=== PATIENT | male | born 1985 | race Caucasian/White ===

== ENCOUNTER 2017-08-24 09:47 | Emergency (ER) | payer OTHER ==
[~2017-08-24] VITALS: Ht 188 cm; Wt 81.7 kg
[~2017-08-24 09:47] MED LIST: AMOXICILLIN 50500 MG PO; AMOXICILLIN875 MG PO; DOXYCYCLINE 10100 M1 PO; IBUPROFEN 600600 M1 PO; IBUPROFEN 800800 M1 PO; KEFLEX500 MG PO; NOHOMEMEDICATIONS; NORCO 5-325 TA1 EACH PO
[2017-08-24 09:58] VITALS: BP 120/81
[2017-08-24] MEDS ORDERED: CIPROFLOXIN HC2.5 M1 OPHTHALMIC (10:30)
== END 2017-08-24 10:37 | disposition home or self-care (01) ==
LOC: M.ERS 09:47
DX: S05.01XA Injury of conjunctiva and corneal abrasion without foreign body, right eye, initial encounter (principal); I10 Essential (primary) hypertension; Z87.01 Personal history of pneumonia (recurrent); X58.XXXA Exposure to other specified factors, initial encounter; Y93.89 Activity, other specified; Y92.89 Other specified places as the place of occurrence of the external cause; Y99.8 Other external cause status